=== PATIENT | female | born 2005 | race Native Hawaiian/Other Pacific Islander ===

== ENCOUNTER 2023-11-07 06:26 | Emergency (ER) | payer BC, SELFPAY ==
[2023-11-07 06:39] VITALS: BP 117/84; PULSE 95; RESP 20; TEMP 36.7; O2SAT 99; BMI 18.6
--- NOTE | 2023-11-07 07:01 | ED.GENADULT ---
HPI - General Adult General Date Seen: 11/07/23 Chief complaint: Alcohol/Intoxication Stated complaint: Alcohol poisoning Time Seen by Provider: 11/07/23 06:51 Source: patient Mode of arrival: ambulatory Limitations: no limitations History of Present Illness HPI narrative: Patient is a 18-year-old female who is brought in by her mother at 6:30 a.m. in the morning. She woke around 3:00 a.m. started vomiting and has vomited numerous times. She has some lower abdominal pain. Yesterday she was drinking Jagermeister and Red Bull. She has had both of these separately before but never together. She stop drinking at about 9:00 p.m. and felt fine when she went to bed other than being intoxicated. There is no blood in her vomit. She has had no black or bloody stools. No dysuria, urgency, frequency. She has never had this reaction after drinking before. She was with her family and does not believe that there was anything else put in her drink. Related Data Home Medications ?Medication ?Instructions ?Recorded ?Confirmed No Known Home Medications 11/07/23 11/07/23 Allergies Allergy/AdvReac Type Severity Reaction Status Date / Time No Known Drug Allergies Allergy Verified 11/07/23 06:41 Review of Systems Narrative: Review of systems is outlined above otherwise noted to be negative. [facility] Medical History (Updated 11/07/23 @ 07:07 by Joselo Adams MD) No significant past medical history Surgical History (Updated 11/07/23 @ 06:47 by Tristen Colon RN) No significant past surgical history Social History Smoking Status: Never smoker Second hand tobacco smoke exposure: No How often do you have a drink containing alcohol: monthly or less AUDIT-C Alcohol total score: 1 Non-prescribed substance use: denies use Exam Narrative: Exam Narrative: Vitals noted. Patient was sleeping but arouses easily. HEENT: Conjunctiva clear. Tympanic membranes are pearly white bilaterally. Posterior pharynx is clear without erythema or exudate. Neck is supple without adenopathy, thyromegaly, carotid bruit. Lungs: Clear to auscultation in all brock. No wheezes, rales, rhonchi. Heart: Regular rate and rhythm without murmur. Abdomen: Soft with mild lower quadrant tenderness. No guarding, rigidity, rebound. Bowel sounds are normal. No palpable masses. Extremities: No cyanosis or edema. Good distal pulses. Skin: No abnormalities noted of the exposed skin. Neurologic: Awake, alert, fully oriented. Neurologic exam is nonfocal. Const: Vital Signs, click to edit/add: Vital Signs - 24 hr 11/07/23 06:39 Temperature 98.0 F Pulse Rate [Right Pulse Oximeter] 95 Respiratory Rate 20 Blood Pressure [Ri ght Upper Arm] 117/84 Pulse Oximetry 99 Oxygen Delivery Me thod Room Air Course Course ED Course: Patient is seen and examined and is in no acute distress. IV is established and she is given 1 L of normal saline along with Toradol 30 mg IV and Zofran 4 mg IV. Reevaluation(s) Reevaluation #1: After the fluids and meds her symptoms have resolved and she is anxious for discharge. Vital Signs Vital signs: Initial Vital Signs Temperature 98.0 F 11/07/23 06:39 Temperature Source Temporal Artery Scan 11/07/23 06:39 Pulse Rate 95 11/07/23 06:39 Respiratory Rate 20 11/07/23 06:39 Blood Pressure 117/84 11/07/23 06:39 Blood Pressure Mean 95 11/07/23 06:39 Blood Pressure Position Sitting 11/07/23 06:39 Pulse Oximetry 99 11/07/23 06:39 Oxygen Delivery Method Room Air 11/07/23 06:39 Vital Signs Temperature 98.0 F 11/07/23 06:39 Pulse Rate 95 11/07/23 06:39 Respiratory Rate 20 11/07/23 06:39 Blood Pressure 117/84 11/07/23 06:39 Pulse Oximetry 99 11/07/23 06:39 Oxygen Delivery Method Room Air 11/07/23 06:39 Temperature 98.0 F 11/07/23 06:39 Pulse Rate 95 11/07/23 06:39 Respiratory Rate 20 11/07/23 06:39 Blood Pressure 117/84 11/07/23 06:39 Pulse Oximetry 99 11/07/23 06:39 Oxygen Delivery Method Room Air 11/07/23 06:39 Medications Administered Medications: Generic Name Dose Route Start Last Admin Trade Name Freq PRN Reason Stop Dose Admin Sodium Chloride 1,000 mls @ 1,000 mls/hr 11/07/23 07:00 11/07/23 07:42 0.9 % Sodium Chloride 1000 Ml IV 11/07/23 07:59 Infused .Q1H [place] Infusion Discontinued Medications Generic Name Dose Route Start Last Admin Trade Name Nish PRN Reason Stop Dose Admin Ketorolac Tromethamine 30 mg 11/07/23 07:00 11/07/23 07:28 Ketorolac 30 Mg/Ml Inj IVP 11/07/23 07:01 30 mg ONCE ONE Administration Ondansetron HCl 4 mg 11/07/23 07:00 11/07/23 07:28 Ondansetron 2 Mg/Ml Inj IVP 11/07/23 07:01 4 mg ONCE ONE Administration Discharge Plan Discharge Clinical Impression: Hangover Patient Disposition: Home w/ Parent or Adult Condition: Improved Additional Instructions: Freestone diet. Stay hydrated. Avoid alcohol. Tylenol or ibuprofen for pain. Prescriptions: No Action No Known Home Medications Stand Alone Forms: [facility] Info Instructions
[2023-11-07] MEDS: 0.9 % SODIUM CHLORIDE 1000 ml 1,000 ML IV (07:28)
[2023-11-07] MEDS: KETOROLAC 30 MG/ML inj IVP (07:28)
[2023-11-07] MEDS: ONDANSETRON 2 MG/ML inj 4 MG IVP (07:28)
== END 2023-11-07 08:04 | disposition home or self-care (01) ==
LOC: ED 07:24
PROVIDERS: Emergency Provider Family Medicine
DX: F10.129 Alcohol abuse with intoxication, unspecified (principal)
CPT/HCPCS: 96374; 96375; 99282; 99283; J1885; J2405; J7030